=== PATIENT | female | born 1955 | race Caucasian/White ===

== ENCOUNTER 2023-06-05 12:35 | Outpatient (REF) | payer MEDICARE, OTHER, SELFPAY ==
[2023-06-05 14:09] LABS: T4 Thyroxine 9.1 ug/dL (4.5-12.0); Thyroid Stimulating Hormone 0.69 uIU/mL (0.32-4.0)
[2023-06-05 14:25] LABS: Folate 6.2 ng/mL (> or = 4.0); Vitamin B12 > 2000 pg/mL (200-900)
[2023-06-07 17:28] LABS: Homocysteine 10.2 umol/L (<10.4)
[2023-06-10 12:39] LABS: Methylmalonic Acid 98 nmol/L (87-318)
[2023-06-11 06:49] LABS: Vitamin D 25-OH, D2 <4 ng/mL; Vitamin D 25-OH, D3 51 ng/mL; Vitamin D 25-OH, Total 51 ng/mL (30-100)
== END 2023-06-05 12:36 | disposition home or self-care (01) ==
LOC: HO.LAB 12:35
PROVIDERS: Visit Provider Psychiatry & Neurology Neurology
DX: G31.84 Mild cognitive impairment of uncertain or unknown etiology (principal); F32.9 Major depressive disorder, single episode, unspecified
CPT/HCPCS: 36415; 82306; 82607; 82746; 83090; 83921; 84436; 84443